=== PATIENT | female | born 1960 | race Caucasian/White ===

== ENCOUNTER → 2020-05-27 | Outpatient (CLI) | payer OTHER ==
[~2020-05-27] MED LIST: ACET650T24 PO; ASPI-1443 PO; FOLI1TAB15 PO; METH25VI11 SQ; NAPR1TAB24 PO; THYR30TA2 PO
== END | disposition home or self-care (01) ==
LOC: OIH 12:58
PROVIDERS: ATTEND Internal Medicine
DX: M13.872 Other specified arthritis, left ankle and foot (principal); M13.871 Other specified arthritis, right ankle and foot; M85.872 Other specified disorders of bone density and structure, left ankle and foot; M85.871 Other specified disorders of bone density and structure, right ankle and foot; M13.842 Other specified arthritis, left hand; M13.841 Other specified arthritis, right hand; M85.842 Other specified disorders of bone density and structure, left hand; M85.841 Other specified disorders of bone density and structure, right hand
CPT/HCPCS: 73100; 73630